=== PATIENT | female | born 1935 | race Caucasian/White ===

== ENCOUNTER 2018-03-02 02:24 | Emergency (ER) | payer MEDICARE, SELFPAY ==
[2018-03-02 02:25] VITALS: BP 205/84; PULSE 85; RESP 18; TEMP 37.1; O2SAT 97; BMI 20.8
--- NOTE | 2018-03-02 02:44 | CT_ITS ---
STUDY: CT ABDOMEN AND PELVIS WITH CONTRAST REASON FOR EXAM: Female, 82 years old. Abdominal pain x1 week RADIATION DOSAGE (If Supplied By Facility): CTDIvol = ( 9.30 ) mGy, DLP = ( 692.77 ) mGycm TECHNIQUE: Transaxial images were obtained from the dome of the diaphragm to the symphysis pubis with oral contrast. 100ML ml of Isovue 300 contrast was administered. Sagittal and coronal images were reconstructed. Individualized dose optimization techniques were used for this CT. COMPARISON: None. FINDINGS: The visualized lung bases are unremarkable. The visualized portions of the heart are within normal limits. Normal liver. The gallbladder is contracted. Normal spleen. Normal pancreas. Normal bilateral adrenal glands. Normal right kidney. Normal left kidney. Normal visualized stomach. Normal small intestine. There are multiple colonic diverticula consistent with diverticulosis. There is non-visualization of the appendix. Postsurgical changes of the rectum which chains sutures. There is diffuse atherosclerotic calcification of the abdominal aorta, without a demonstrated aneurysm. Normal inferior vena cava. Normal retroperitoneum. Normal urinary bladder. There is absence of the uterus consistent with a prior hysterectomy. Normal abdominal wall. There are diffuse degenerative changes of the visualized lumbar spine. CT/Abdomen/Pelvis WITH Contrast IMPRESSION: No acute findings. Postsurgical changes of the rectum. No evidence of diverticulitis. Electronically Signed: Robert Painter DO at 5:18 EDT Tel , Service support ,
[2018-03-02] MEDS: Ondansetron 4 MG/2 ML Vial IV (02:59)
[2018-03-02 03:09] LABS: Absolute Lymphocyte Count 0.84 X10^3/ul (0.83-4.51); Absolute Neutrophil Count 5.4 X10^3/uL (2.0-7.7); Basophil# 0.01 X10^3/uL; Basophil% 0.1 % (0-1); Eosinophil# 0.07 X10^3/uL; Hematocrit 43.8 % (37-47); Lymphocyte # 0.84 X10^3/ul (4.0); Lymphocyte % 12.1 % (19-41); Mean Corp Hgb Conc 34.2 g/gl (32-36); Mean Corpuscular Hgb 32.7 pg (27.0-32.0); Mean Corpuscular Volume 95.4 fL (81-99); Monocyte# 0.65 X10^3/uL; Monocyte% 9.4 % (0-10); Neutrophil # 5.35 X10^3/uL (2.7-7.7); Neutrophil % 77.3 % (47-70); Platelet Count 197 K/mm3 (150-450); RBC Distribution Width CV 12.9 % (11.6-14.6); Red Blood Count 4.59 M/mm3 (4.2-5.4); White Blood Count 6.9 K/mm3 (4.4-11.0)
[2018-03-02 03:11] LABS: POSITIVE COUNT NO; POSITIVE DIFFERENTIAL NO; POSITIVE MORPHOLOGY NO
[2018-03-02 03:22] LABS: ALB/GLOB Ratio 0.9 RATIO (0.9-2.4); AST(SGOT) 30 U/L (15-37); Alanine Aminotransfer ALT/SGPT 24 U/L (13-56); Albumin, Serum 3.6 g/dL (3.2-5.0); Alkaline Phosphatase 78 U/L (45-117); Anion Gap 13 (5-15); BUN 15 mg/dL (7-18); BUN/Creat Ratio 12.4 RATIO (10-20); Chloride 102 mmol/L (98-107); Creatinine, Serum 1.21 mg/dL (0.55-1.02); EST Glomerular Filtration Rate 45 mL/min (>60); Est Glom Filt Rate - Afr Amer 55 mL/min (>60); Estimated Creatinine Clearance 26.58 ml/min; Globulin 4.2 g/dL (2.2-4.2); Glucose 173 mg/dL (74-106); Lipase 183 U/L (73-393); Potassium 3.5 mmol/L (3.5-5.1); Protein, Total 7.8 g/dL (6.4-8.2); Sodium Level 140 mmol/L (136-145)
[2018-03-02 04:56] VITALS: BP 192/76; PULSE 59; RESP 18; O2SAT 97
--- NOTE | 2018-03-02 05:35 | ED.VISSUMM ---
- ER Visit Summary Date of Service: 03/02/18 Chief Complaint: Abdominal pain History of Present Illness: The patient is a 82 F who presents with abdominal pain. She complains of 3 days of burning mid abdominal pain which she currently rates as 5 out of 10. She reports nausea but no vomiting. She has had some loose stools. She has been taking Pepto-Bismol. She has had black stools but knows this may be from the Pepto-Bismol. No bright red blood per rectum. No fevers no chills. She is concerned that this may be related to valsartan. She states that her valsartan dose was increased however this was actually all the way back in December. Physical Examination: Afebrile vitals are notable for hypertension Moist mucous membranes Heart regular rate and rhythm Lungs clear Abdomen soft nondistended she does have some midabdominal tenderness without guarding without rebound Alert Test Results: CBC BMP notable for glucose 173 and creatinine of 1.2. Total bilirubin 1.2. Lipase normal. Hemoccult negative. CT of the abdomen and pelvis with oral and IV contrast shows no acute findings. Emergency Department Course and Treatment: Patient was treated with Zofran. She is resting comfortably on reevaluation. Her repeat abdominal exam is benign. Her laboratory studies are unremarkable with negative imaging. I do not believe this is due to any acute surgical process. I do suspect given her description of burning pain with a history of reflux that this may be related to gastritis. We will add on Carafate. She was advised to call her doctor today to schedule for outpatient follow-up. She was instructed on specific signs and symptoms to monitor for and conditions under which to return to the emergency department including but not limited to fevers or vomiting or worsening pain. She is comfortable with this plan. All questions were answered at bedside and the patient was discharged home. Treatment Plan: [] Disposition: Discharge Impression: Abdominal pain This note was generated with [employer] dictation software. It may contain incorrect words, spelling, and punctuation that were not noted in review of the chart prior to signing ED Disposition - Plan for ED Patient: Chief Complaint: Abd Pain Referrals: Henrique Fernandez MD [Primary Care Provider] -
--- NOTE | 2018-03-02 05:38 | ED.DEP ---
ED Disposition - Plan for ED Patient: Chief Complaint: Abd Pain Instructions: ED Abdominal Pain Unkn Cause Prescriptions: Sucralfate [Carafate] 1 gm PO 4X/DAY #40 tab Referrals: Henrique Fernandez MD [Primary Care Provider] -
[2018-03-02 05:46] VITALS: BP 178/63; RESP 18; O2SAT 96
== END 2018-03-02 05:51 | disposition home or self-care (01) ==
PROVIDERS: Emergency Provider Emergency Medicine; Family Provider Internal Medicine; PCP Internal Medicine
DX: R10.9 Unspecified abdominal pain (principal); R11.0 Nausea; R19.7 Diarrhea, unspecified; K21.9 Gastro-esophageal reflux disease without esophagitis; E11.9 Type 2 diabetes mellitus without complications; I10 Essential (primary) hypertension
CPT/HCPCS: 74177; 80053; 82274; 83690; 85025; 99285; Q9967; A4216; J2405

== ENCOUNTER 2018-03-04 15:10 | Emergency (ER) | payer MEDICARE, SELFPAY ==
[2018-03-04 15:12] VITALS: BP 144/90; PULSE 119; RESP 18; TEMP 36.1; O2SAT 98; BMI 24.2
--- NOTE | 2018-03-04 16:25 | EKG12_ITS ---
Test Reason : FATIGUE Blood Pressure : / mmHG Vent. Rate : 098 BPM Atrial Rate : 098 BPM P-R Int : 118 ms QRS Dur : 078 ms QT Int : 360 ms P-R-T Axes : 003 -39 069 degrees QTc Int : 459 ms Normal sinus rhythm Left axis deviation Pulmonary disease pattern Abnormal ECG Confirmed by ALINA DUMONT, NAY ([id number]), photo editor NESHA MILTON ([id number]) on 03/08/2018 8:56:26 AM Referred By: Confirmed By:NAY FLULER MD
[2018-03-04 16:27] VITALS: BP 185/90; PULSE 99; RESP 14; O2SAT 96
--- NOTE | 2018-03-04 16:29 | ED.VISSUMM ---
- ER Visit Summary Date of Service: 03/04/18 Chief Complaint: Fatigue History of Present Illness: The patient is a 82 F who states that she feels poorly. She states that she is constipated and her last bowel movement was at the beginning of the week. She states that she was in the emergency room earlier this week (per the chart she was seen 0 02/12 0). She states that time she felt weak. Per the ER documentation she was having some epigastric pain had negative Hemoccult negative labs. She states that she had a scan done. She went to her doctor's office yesterday and tells me they wanted to give her an IV but they were out of something. She tells me they advised her to come to the emergency room the next day. When asked why they would advised her to come to the emergency room the next day she states I cannot tell you what is going on because I do not want to and I live alone and now my chest hurts. Upon further questioning she tells me that they told her to drink plenty of fluids last night and that she still felt weak to come to the emergency room today. The patient gets emotionally upset with direct questions for her to explain vague statements. Physical Examination: Afebrile vital signs are stable Gen: Well-nourished well-developed Head: Normocephalic atraumatic Eyes: Perrl EOMI ENT: TMs clear no rhinorrhea moist mucous membranes Neck: Supple no lymphadenopathy no JVD nontender CVS: Regular rate rhythm no murmurs normal S1-S2 Respiratory: No distress clear to auscultation bilaterally chest nontender Abdomen: Soft nontender nondistended normal bowel sounds no masses Back: Nontender Extremity: Nontender no edema Skin: Normal color no rash Neuro: alert orientated ?3 CN II-XII intact normal strength sensation reflexes gait cerebellar Psych: Anxious Test Results: White blood cell count 14.9. BUN 28 with creatinine 1.1. Urinalysis 5000 white cells positive nitrates positive leukocyte esterase 4+ bacteria. This was sent for culture. EKG shows a sinus rhythm at a rate of 98 Emergency Department Course and Treatment: Patient received a liter of IV fluids. Spoke with the patient informed her that she had a urinary tract infection. Informed her we would be starting her on antibiotics. I asked her if she felt like she would need to be admitted and she declined. She stated that she could take care of herself at home. I asked if she was going to be able to eat and drink she said she would. I will write for some Zofran. I am also going to place her on Keflex. Patient was advised to return instructions. I think it is reasonable to do a trial of outpatient antibiotics before admission and she is not febrile or vomiting and she is hemodynamically stable Impression: 1. UTI This note was generated with [employer] dictation software. It may contain incorrect words, spelling, and punctuation that were not noted in review of the chart prior to signing ED Disposition - Plan for ED Patient: Disposition: Home or Assisted Living Chief Complaint: Fatigue Instructions: ED UTI Cystitis Female Prescriptions: Ondansetron [Zofran Odt] 4 mg PO Q8H PRN PRN #10 tab PRN Reason: Nausea Cephalexin [Keflex] 500 mg PO Q6 #28 cap Referrals: Henrique Fernandez MD [Primary Care Provider] - 3-5 Days if not improving
--- NOTE | 2018-03-04 16:34 | RAD_ITS ---
STUDY: X-RAY CHEST REASON FOR EXAM: Female, 82 years old. Weakness. Poor appetite. TECHNIQUE: Single frontal view of the chest. COMPARISON: January 31, 2016 FINDINGS: The lungs are mildly hyperexpanded and unchanged. There is no demonstrated pleural abnormality. There is mild cardiomegaly. Normal mediastinum and esvin. Normal visualized pulmonary arteries. There is atherosclerotic calcification of the aortic arch with tortuosity. Normal visualized thoracic spine. Normal visualized ribs, clavicles, and shoulders. There is no demonstrated abnormality of the visualized soft tissue structures of the upper abdomen. RAD/Chest 1 View (Portable) IMPRESSION: Stable appearance of the chest with no new or acute pathology. Electronically Signed: Eliazar Vee MD at 17:03 EDT , Service support ,
[2018-03-04] MEDS: 0.9% Normal Saline 1,000 ML 1000 ML IV (16:45)
[2018-03-04 17:03] LABS: Absolute Lymphocyte Count 0.86 X10^3/ul (0.83-4.51); Absolute Neutrophil Count 12.5 X10^3/uL (2.0-7.7); Basophil# 0.01 X10^3/uL; Basophil% 0.1 % (0-1); Eosinophil# 0.01 X10^3/uL; Eosinophils% 0.1 % (0-5); Hematocrit 47.7 % (37-47); Hemoglobin 16.7 g/dl (12.0-15.0); Lymphocyte # 0.86 X10^3/ul (4.0); Lymphocyte % 5.8 % (19-41); Mean Corpuscular Hgb 32.9 pg (27.0-32.0); Mean Corpuscular Volume 94.1 fL (81-99); Mean Platelet Vol. 9.4 fl (6.2-12.0); Monocyte# 1.48 X10^3/uL; Monocyte% 9.9 % (0-10); Neutrophil # 12.47 X10^3/uL (2.7-7.7); Neutrophil % 83.8 % (47-70); POSITIVE COUNT NO; POSITIVE DIFFERENTIAL NO; POSITIVE MORPHOLOGY NO; Platelet Count 294 K/mm3 (150-450); RBC Distribution Width CV 13.1 % (11.6-14.6); RBC Distribution Width SD 44.4 fl (35.1-43.9); Red Blood Count 5.07 M/mm3 (4.2-5.4); White Blood Count 14.9 K/mm3 (4.4-11.0)
[2018-03-04 17:05] LABS: Partial Thromboplast Time 27.5 Seconds (24.1-36.2); Prothrombin Time (Protime)PT. 13.1 SECONDS (11.7-14.9)
[2018-03-04 17:21] LABS: ALB/GLOB Ratio 0.8 RATIO (0.9-2.4); AST(SGOT) 23 U/L (15-37); Alanine Aminotransfer ALT/SGPT 22 U/L (13-56); Albumin, Serum 3.8 g/dL (3.2-5.0); Alkaline Phosphatase 77 U/L (45-117); Anion Gap 13 (5-15); BUN 28 mg/dL (7-18); BUN/Creat Ratio 25.2 RATIO (10-20); Calcium,Total 9.4 mg/dL (8.5-10.1); Chloride 96 mmol/L (98-107); Creatinine, Serum 1.11 mg/dL (0.55-1.02); EST Glomerular Filtration Rate 50 mL/min (>60); Est Glom Filt Rate - Afr Amer 60 mL/min (>60); Estimated Creatinine Clearance 27.58 ml/min; Globulin 4.7 g/dL (2.2-4.2); Glucose 139 mg/dL (74-106); Lipase 239 U/L (73-393); Potassium 3.8 mmol/L (3.5-5.1); Protein, Total 8.5 g/dL (6.4-8.2); Sodium Level 132 mmol/L (136-145)
[2018-03-04 18:01] LABS: Red Blood Cells-Urine 0 SEEN /hpf (0-5)
[2018-03-04 18:04] LABS: Color, Urine Yellow (Yellow); Glucose, Dipstick Normal (Normal); Ketone-Dipstick 50 mg/dl (Negative); Leukocyte Esterase-Dipstick 500 /ul (Negative); Nitrite-Dipstick Positive (Negative); Occult Blood-Urine 50 /ul (Negative); Protein-Dipstick 100 mg/dl (Negative); Urine Bilirubin Dipstick Negative (Negative); Urine Clarity Cloudy (Clear); Urine Urobilinogen Normal (Normal)
[2018-03-04 18:16] LABS: Hyaline Cast 0-5 SEEN /lpf (0-5)
[2018-03-04 18:17] LABS: Mucous, Urine 1+ /hpf (<or=2+)
[2018-03-04 18:18] LABS: Bacteria 4+ /hpf (None Seen)
[2018-03-04 18:19] VITALS: BP 168/90; PULSE 90; RESP 14; O2SAT 98
[2018-03-04 18:19] LABS: Squamous Epithelial Cells - UA 0-5 SEEN /hpf (5-10); Transitional Epithelial - Ur 0-5 SEEN /hpf (0-5); White Blood Cells 50-100 SEEN /hpf (0-5)
[2018-03-04] MEDS: Ondansetron ODT 4 MG Tablet PO (19:43)
[2018-03-04] MEDS: Cephalexin 250 MG Capsule 500 MG PO (19:44)
[2018-03-04 19:45] VITALS: BP 154/89; PULSE 94; RESP 16; O2SAT 97
--- NOTE | 2018-03-08 11:14 | ED.RN ---
Called pt to notify her of urine culture results. She was encouraged to return to ED for IV antibiotics. The pt verbalized understanding and stated she would come in tomorrow after she wakes up.
== END 2018-03-04 19:49 | disposition home or self-care (01) ==
PROVIDERS: Emergency Provider Emergency Medicine; Family Provider Internal Medicine; PCP Internal Medicine
DX: N39.0 Urinary tract infection, site not specified (principal); K21.9 Gastro-esophageal reflux disease without esophagitis; E11.9 Type 2 diabetes mellitus without complications; I10 Essential (primary) hypertension; K59.00 Constipation, unspecified; R07.9 Chest pain, unspecified
CPT/HCPCS: 71045; 80053; 81001; 83690; 84484; 85025; 85610; 85730; 87077; 87086; 87088; 87186; 93005; 96360; 99285; J7030; A4216

== ENCOUNTER 2018-03-09 09:30 | Emergency (ER) | payer MEDICARE, SELFPAY ==
[2018-03-09 09:31] VITALS: BP 165/86; PULSE 80; RESP 18; TEMP 36.6; O2SAT 98; BMI 23.4
[2018-03-09 10:06] LABS: Absolute Lymphocyte Count 1.32 X10^3/ul (0.83-4.51); Absolute Neutrophil Count 8.4 X10^3/uL (2.0-7.7); Basophil# 0.04 X10^3/uL; Basophil% 0.4 % (0-1); Eosinophil# 0.36 X10^3/uL; Eosinophils% 3.2 % (0-5); Hematocrit 45.2 % (37-47); Hemoglobin 15.3 g/dl (12.0-15.0); Lymphocyte # 1.32 X10^3/ul (4.0); Lymphocyte % 11.7 % (19-41); Mean Corp Hgb Conc 33.8 g/gl (32-36); Mean Corpuscular Hgb 32.2 pg (27.0-32.0); Mean Corpuscular Volume 95.2 fL (81-99); Monocyte# 1.12 X10^3/uL; Monocyte% 9.9 % (0-10); Neutrophil # 8.36 X10^3/uL (2.7-7.7); Neutrophil % 73.8 % (47-70); POSITIVE COUNT NO; POSITIVE DIFFERENTIAL NO; POSITIVE MORPHOLOGY NO; Platelet Count 330 K/mm3 (150-450); RBC Distribution Width CV 13.3 % (11.6-14.6); RBC Distribution Width SD 45.9 fl (35.1-43.9); Red Blood Count 4.75 M/mm3 (4.2-5.4); White Blood Count 11.3 K/mm3 (4.4-11.0)
[2018-03-09 10:21] LABS: Anion Gap 8 (5-15); BUN 16 mg/dL (7-18); BUN/Creat Ratio 12.6 RATIO (10-20); Chloride 100 mmol/L (98-107); Creatinine, Serum 1.27 mg/dL (0.55-1.02); EST Glomerular Filtration Rate 43 mL/min (>60); Est Glom Filt Rate - Afr Amer 52 mL/min (>60); Estimated Creatinine Clearance 25.33 ml/min; Glucose 136 mg/dL (74-106); Sodium Level 136 mmol/L (136-145)
--- NOTE | 2018-03-09 11:07 | ED.VISSUMM ---
- ER Visit Summary Date of Service: 03/09/18 Chief Complaint: Return visit for recently diagnosed UTI. History of Present Illness: The patient is a 82 F diagnosed with a urinary tract infection. Placed on the oral antibiotic Keflex. Urine culture returned showed 2 different E. coli. One was sensitive to any otherwise resistance to Keflex. Otherwise patient does not have complaints. No fever. Mild nausea and frequency. No vomiting. Physical Examination: Well-appearing older female. Vital signs are stable and afebrile. H EENT exam mildly dry mucous membranes. Neck nontender. Lungs clear to auscultation. Heart regular rhythm no murmur. Abdomen is soft and nontender. Normal bowel sounds. No peritoneal signs. Moving all 4 extremities. Neurovascularly intact. Calves nontender without edema. Neurologically awake and alert. Answering questions and following commands. No motor deficits. Test Results: CBC shows a white count of 11.3. H&H of 15 and 45. No bands. Electrolytes show potassium of 3.0. Gap of 8. Creatinine 1.27. Emergency Department Course and Treatment: Slightly patient looks well on repeat exam. She was treated with a liter of normal saline. I spoke to the infectious disease physician data management consultant. Patient will continue on her Keflex. I will add Macrobid twice daily. And she will be discharged home. Treatment Plan: I spoke both with infectious disease and also her primary care physician Dr. Fernandez. He will ensure follow-up with the patient. She will continue on Keflex and now Macrobid for 10 days. And follow-up as an outpatient. Disposition: Discharge Impression: Acute urinary tract infection with antibiotic resistant E. coli This note was generated with [employer] dictation software. It may contain incorrect words, spelling, and punctuation that were not noted in review of the chart prior to signing ED Disposition - Plan for ED Patient: Chief Complaint: Complaint Referrals: Henrique Fernandez MD [Primary Care Provider] -
--- NOTE | 2018-03-09 11:12 | ED.DCSUM_ITS ---
- ER Visit Summary Date of Service: 03/09/18 Chief Complaint: Return visit for recently diagnosed UTI. History of Present Illness: The patient is a 82 F diagnosed with a urinary tract infection. Placed on the oral antibiotic Keflex. Urine culture returned showed 2 different E. coli. One was sensitive to any otherwise resistance to Keflex. Otherwise patient does not have complaints. No fever. Mild nausea and frequency. No vomiting. Physical Examination: Well-appearing older female. Vital signs are stable and afebrile. H EENT exam mildly dry mucous membranes. Neck nontender. Lungs clear to auscultation. Heart regular rhythm no murmur. Abdomen is soft and nontender. Normal bowel sounds. No peritoneal signs. Moving all 4 extremities. Neurovascularly intact. Calves nontender without edema. Neurologically awake and alert. Answering questions and following commands. No motor deficits. Test Results: CBC shows a white count of 11.3. H&H of 15 and 45. No bands. Electrolytes show potassium of 3.0. Gap of 8. Creatinine 1.27. Emergency Department Course and Treatment: Slightly patient looks well on repeat exam. She was treated with a liter of normal saline. I spoke to the infectious disease physician adult probation officer. Patient will continue on her Keflex. I will add Macrobid twice daily. And she will be discharged home. Treatment Plan: I spoke both with infectious disease and also her primary care physician Dr. Fernandez. He will ensure follow-up with the patient. She will continue on Keflex and now Macrobid for 10 days. And follow-up as an outpatient. Disposition: Discharge Impression: Acute urinary tract infection with antibiotic resistant E. coli This note was generated with [employer] dictation software. It may contain incorrect words, spelling, and punctuation that were not noted in review of the chart prior to signing ED Disposition - Plan for ED Patient: Chief Complaint: Complaint Referrals: Henrique Fernandez MD [Primary Care Provider] -
--- NOTE | 2018-03-09 11:12 | ED.DEP ---
ED Disposition - Plan for ED Patient: Disposition: Home or Assisted Living Chief Complaint: Complaint Instructions: ED UTI Cystitis Female Prescriptions: Nitrofurantoin Macrocrystals [Macrobid] 100 mg PO Q12 #20 cap Referrals: Henrique Fernandez MD [Primary Care Provider] - 3-5 Days Additional Instructions: Plenty of fluids and rest. Continue and finish her Keflex. He will also be started on a second antibiotic called Macrobid that you will take 1 pill twice a day for 10 days. I spoke with Dr. Fernandez your primary care physician call his office and follow-up with him next week to be rechecked.
[2018-03-09] MEDS: Nitrofurantoin Macrocrystals 100 MG Capsule PO (11:18)
--- NOTE | 2018-03-10 11:03 | ED.RN ---
called rx for macrobid into [facility] for dr koroma. pt called and did not have the rx
== END 2018-03-09 11:15 | disposition home or self-care (01) ==
PROVIDERS: Emergency Provider Emergency Medicine; Family Provider Internal Medicine; PCP Internal Medicine
DX: N39.0 Urinary tract infection, site not specified (principal); A49.8 Other bacterial infections of unspecified site; Z16.29 Resistance to other single specified antibiotic; E11.9 Type 2 diabetes mellitus without complications; I10 Essential (primary) hypertension; Z85.828 Personal history of other malignant neoplasm of skin
CPT/HCPCS: 80048; 85025; 99282; A4216

== ENCOUNTER 2018-06-22 19:33 | Observation (INO) | payer MEDICARE, SELFPAY ==
[2018-06-22] VITALS (10 sets, daily range): BP systolic 138–165; BP diastolic 59–81; PULSE 56–70; RESP 13–18; TEMP 36.5–36.7; O2SAT 97–100; BMI 24.2; BMI 23.9
--- NOTE | 2018-06-22 19:57 | CT_ITS ---
STUDY: CT BRAIN WITHOUT CONTRAST REASON FOR EXAM: Female, 82 years old. Vertigo. RADIATION DOSAGE (If Supplied By Facility): CTDIvol = ( 44.99 ) mGy, DLP = ( 745.49 ) mGycm TECHNIQUE: Transaxial CT imaging of the brain was performed without administration of intravenous contrast material. Individualized dose optimization techniques were used for this CT. COMPARISON: January 31, 2016 FINDINGS: Normal soft tissue structures. Normal calvarium. There is mild cerebral atrophy with widening of the extra-axial spaces and ventricular dilatation. There are areas of decreased attenuation within the white matter tracts of the supratentorial brain, consistent with microvascular disease changes. Normal basal ganglia and thalami. Normal brainstem. Normal cerebellum. There is no intracranial hemorrhage. There are no findings of an acute ischemic infarction. Normal visualized paranasal sinuses. CT/Brain/Head without Contrast IMPRESSION: Chronic involutional changes of the brain. Small vessel ischemia. Electronically Signed: Danielle Elkins MD at 20:39 EST Tel , Service support ,
--- NOTE | 2018-06-22 19:57 | EKG12_ITS ---
Test Reason : DIZZY Blood Pressure : / mmHG Vent. Rate : 067 BPM Atrial Rate : 067 BPM P-R Int : 160 ms QRS Dur : 078 ms QT Int : 388 ms P-R-T Axes : 054 019 068 degrees QTc Int : 409 ms Normal sinus rhythm Normal ECG Confirmed by ALINA DUMONT, NAY ([id number]), editorial project manager NESHA MILTON ([id number]) on 06/27/2018 4:56:16 PM Referred By: SORAIDA Confirmed By:NAY FULLER MD
[2018-06-22 20:11] LABS: Absolute Lymphocyte Count 1.89 X10^3/ul (0.83-4.51); Basophil# 0.03 X10^3/uL; Basophil% 0.3 % (0-1); Eosinophil# 0.48 X10^3/uL; Eosinophils% 5.1 % (0-5); Hematocrit 44.8 % (37-47); Hemoglobin 14.8 g/dl (12.0-15.0); Lymphocyte # 1.89 X10^3/ul (4.0); Lymphocyte % 20.2 % (19-41); Mean Corpuscular Volume 96.8 fL (81-99); Mean Platelet Vol. 9.2 fl (6.2-12.0); Monocyte% 9.6 % (0-10); Neutrophil # 6.03 X10^3/uL (2.7-7.7); Neutrophil % 64.5 % (47-70); POSITIVE COUNT NO; POSITIVE DIFFERENTIAL NO; POSITIVE MORPHOLOGY NO; Platelet Count 249 K/mm3 (150-450); RBC Distribution Width CV 13.5 % (11.6-14.6); RBC Distribution Width SD 47.7 fl (35.1-43.9); Red Blood Count 4.63 M/mm3 (4.2-5.4); White Blood Count 9.4 K/mm3 (4.4-11.0)
[2018-06-22 20:11] LABS: Bedside Glucose 99 mg/dL (70-110)
[2018-06-22 20:13] LABS: Prothrombin Time (Protime)PT. 13.5 SECONDS (11.7-14.9)
[2018-06-22 20:14] LABS: Partial Thromboplast Time 29.7 Seconds (24.1-36.2)
[2018-06-22 20:21] LABS: Anion Gap 10 (5-15); BUN 23 mg/dL (7-18); BUN/Creat Ratio 17.4 RATIO (10-20); Calcium,Total 9.3 mg/dL (8.5-10.1); Chloride 104 mmol/L (98-107); Creatinine, Serum 1.32 mg/dL (0.55-1.02); EST Glomerular Filtration Rate 41 mL/min (>60); Est Glom Filt Rate - Afr Amer 49 mL/min (>60); Glucose 101 mg/dL (74-106); Potassium 4.2 mmol/L (3.5-5.1); Sodium Level 141 mmol/L (136-145)
--- NOTE | 2018-06-22 21:08 | ED.DCSUM_ITS ---
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 Onset 1345. She reports mild problems with speech presently. She denies headache. She denies double vision, blurred vision or loss of vision. She denies trouble swallowing. She denies cardiac respiratory symptoms. She denies nausea or vomiting. There is no history of trauma. She denies dysuria, frequency, urgency hematuria. Review of systems otherwise negative and please read written note Physical Examination: Vital signs noted and blood pressure is slightly elevated at 162/63. Head is atraumatic normocephalic. Pupils are equal round reactive. Extraocular muscles are intact. TMs are pearly white with landmarks noted. Nares patent with no drainage. Posterior pharynx without erythema or exudate. Uvula is midline. There is no dysphonia or dysphasia. Trachea is midline. There is no stridor with auscultation of the neck. Heart is regular without murmur, gallop or rub. S1 and S2 are normal. Lungs are clear to auscultation with good movement of air bilaterally. Abdomen is soft nontender. Patient is alert and oriented ?3. Motor is 5 over 5. Sensory is intact. DTRs are symmetric with no clonus or Babinski sign. Cranial 2 through 12 are intact. Cerebellar testing is normal. Speech is slightly slurred. NIH is 1. Test Results: CT of the head reveals chronic involutional changes. EKG sinus rhythm rate of 67 and normal. CBC unremarkable. Basic metabolic panels marked for creatinine 1.32. Coags normal. Troponin less than 0.015. Emergency Department Course and Treatment: Stroke order set was initiated. Family mother accompanied her said her speech was much worse earlier today and problem with speech and trouble with balance complaining of room spinning. 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 It may contain incorrect words, spelling, and punctuation that were not noted in review of the chart prior to signing ED Disposition - Plan for ED Patient: Chief Complaint: Neuro S/Sx Referrals: Henrique Fernandez MD [Primary Care Provider] -
--- NOTE | 2018-06-22 21:35 | HP.PCM_ITS ---
Problem List (1) Stroke-like symptoms Status: Acute History of Present Illness Date of Admission: 06/22/18 Chief Complaint: confusion The patient is a 82 year old F with a significant history of MRDD; hypothyroidism; tongue cancer and hypertension who presented with confusion that started 4 hours before presentation. Per patient's sister, patient did not know who his sister was and also she did not know who her emergency department director was. Associated with her symptoms is slurry speech, difficulty with ambulation; and a spinning sensation of her head. CT head at the emergency department was unremarkable. Patient's confusion had resolved at the emergency department and her slurry speech has improved. Patient reported that around March 13, 2018 she was treated with Macrobid for UTI.However she still has a burning sensation with urination. Past Medical History Medical History: Medical History (Last Updated 06/22/18 @ 21:46 by Lenin Wong MD) Hypothyroidism E03.9 Hypertension I10 Allergies amlodipine Allergy (Verified 06/22/18 19:34) Unknown amoxicillin [From Augmentin] Allergy (Verified 06/22/18 19:34) Unknown celecoxib [From Celebrex] Allergy (Verified 06/22/18 19:33) Unknown clavulanic acid [From Augmentin] Allergy (Verified 06/22/18 19:34) Unknown lisinopril Allergy (Verified 06/22/18 19:34) Unknown metformin Allergy (Verified 06/22/18 19:33) Unknown nitrofurantoin [From Macrodantin] Allergy (Verified 06/22/18 19:33) Unknown Home Medications: Ambulatory Orders Medication Instructions Recorded Atenolol 100 mg PO DAILY 01/31/16 Insulin Glargine [Lantus (BKC)] 26 units SC QHS 01/31/16 Levothyroxine [Synthroid] 88 mg PO DAILY 01/31/16 Lorazepam 0.5 mg PO DAILY PRN 01/31/16 Aspirin [Aspirin, Baby] 81 mg PO DAILY@0800 03/02/18 Losartan Potassium 100 mg PO DAILY 03/02/18 Sucralfate [Carafate] 1 gm PO 4X/DAY #40 tab 03/02/18 Esomeprazole Magnesium [Nexium 20 mg PO DAILY PRN PRN 06/22/18 24Hr] Loperamide [Imodium] 2 mg PO PRN PRN 06/22/18 Surgical History: - - Small bowel resection Psychiatric History: No pertinent psych hx Lives: Alone Smoking Status: Former smoker Tobacco Use: Cigarettes Alcohol: None - *Family History Paternal History Items: Dementia, - - Thyroid disease Maternal History Items: Diabetes, - - Kidney problems Review of Systems Constitutional: Denies: Chills, Fever, Weight Change HEENT: Denies: Head Aches, Sinus Congestion, Sinus Drainage Cardiovascular: Denies: Chest Pain, Palpitations Respiratory: Denies: Cough, Shortness of breath at rest, Sputum production Gastrointestinal: Denies: Abdominal Pain, Nausea, Vomiting Genitourinary: Denies: Dysuria Musculoskeletal: Denies: Joint Pain, Joint Tenderness Skin: Denies: Rash, Wounds Neurological: Reports: Slurred speech, Confusion. Denies: Focal weakness, Numbness, Tingling Psychiatric: Denies: Anxiety, Depression, Homicidal Ideations, Suicidal Ideations Hematologic/ Lymphatic: Denies: Easy Bruising, Easy Bleeding VTE Information - Inpt Only VTE Present on Admission: No VTE Mechan Device Prophylaxis: None VTE Pharm Prophylaxis ordered?: Yes Patient Problems: Active and Suspected Problems (Last Updated 06/22/18 @ 21:46 by Lenin Wong MD) Stroke-like symptoms (Acute) - Physical Exam General: Alert, Oriented x3, Cooperative HEENT: Atraumatic, PERRLA, EOMI, Normocephalic Oral: - - Erythema and swelling of the left side of tongue that she attributes to cancer Neck: Supple, No JVD, Negative Carotid Bruits Lungs: Clear to auscultation, Normal air movement Cardiovascular: Regular rate, No murmurs Abdomen: Bowel Sounds Present, Soft, Non Tender Extremities: No edema, Capillary Refill Less than 3 Seconds Skin: No rashes, No breakdown Musculoskeletal: No Tenderness to Palpation of Joints or Extremities Neurological: Slurred Speech, - Psych/Mental Status: Normal Affect, Appropriate Vital Signs Temp Pulse Resp BP Pulse Ox 97.7 F L 56 L 16 155/65 H 98 06/22/18 19:35 06/22/18 21:30 06/22/18 21:30 06/22/18 21:30 06/22/18 21:30 Oxygen Delivery Method Room Air Weight: 56.2 kg Body Mass Index (BMI) 24.2 Finger Stick Blood Glucose 99 Laboratory Tests Past 24 Hrs 06/22/18 06/22/18 06/22/18 19:45 19:45 19:45 WBC 9.4 RBC 4.63 Hgb 14.8 Hct 44.8 MCV 96.8 MCH 32.0 MCHC 33.0 RDW 13.5 RDW Differential 47.7 H Plt Count 249 MPV 9.2 Immature Gran % (Auto) 0.300 Neut % (Auto) 64.5 Lymph % (Auto) 20.2 [place] % (Auto) 9.6 Eos % (Auto) 5.1 H Baso % (Auto) 0.3 Absolute Neuts (auto) 6.0 Absolute Lymphs (auto) 1.89 Total Counted Not Reportable PT 13.5 INR 1.0 APTT 29.7 Sodium 141 Potassium 4.2 Chloride 104 Carbon Dioxide 27.0 Anion Gap 10 BUN 23 H Creatinine 1.32 H Estim Creat Clear Calc 23.20 Est GFR (MDRD) Af Amer 49 L Est GFR (MDRD) Non-Af 41 L BUN/Creatinine Ratio 17.4 Glucose 101 Calcium 9.3 Troponin I < 0.015 POC Glucose 06/22/18 19:43 POC Glucose 99 Assessment/Plan All Active Problems (Last Updated 06/22/18 @ 21:46 by Lenin Wong MD) Stroke-like symptoms (Acute) The patient is a 82 year old F with a significant history of MRDD; hypothyroidism; tongue cancer and hypertension who presented with confusion; difficulty with ambulation; Vertigo and slurry speech consistent with strokelike symptoms. Strokelike symptoms NINDS NIH Scale at emergency department was was 1 (slurry speech) CT of the head was showed chronic involutional changes of the brain; small vessel ischemia. Patient has a coils in her head (?cochlea implant) because of hearing problems. She is unable to get an MRI. Her creatinine on admission was 1.32. Her estimated creatinine clearance was 23.2. Her GFR was 49. We will hydrate patient with normal saline and get a CTA of the head and neck vessels. -Check Hba1c, Lipid level Physical therapy, occupational therapy and speech therapy to work with patient. N.p.o. until bedside swallow eval. Daily aspirin. High intensity statin Permissive hypertension. Control blood pressure with labetalol for systolic blood pressure of more than 220 or diastolic blood pressure of more than 120. -Permissive HTN for 24 hrs, intermediate frame tender goal BP < 120/80 mmHg and goal Hba1c < 7% Echocardiogram ordered. Probable UTI We will get urinalysis with blood culture. If Urinalysis is abnormal we will start patient on antibiotics. Hypertension On admission her blood pressure was not within goal. Hold home atenolol and losartan for permissive hypertension. Trend blood pressures. Hypothyroidism Synthroid continued. Diabetes mellitus type 2 On admission her blood glucose was within goal. Patient takes Lantus 26 units every night. Fingerstick blood glucose on admission was 99; and glucose on BMP was 101. We will will cutdown her Lantus to 20 units every night. Tongue cancer Patient follow up outpatient. Continue outpatient follow-up. DVT prophylaxis Subcutaneous heparin ordered. Code Visit OBSV E&M: 22180 Initial observation care L3
--- NOTE | 2018-06-22 21:53 | ECHOD_ITS ---
Reason For Study: CVA Procedure This was a 2D Doppler, Color Flow transthoracic echocardiogram. Exam performed portable in patient room. Left Ventricle Normal LV size. Left ventricular systolic function is normal. The estimated ejection fraction is 55 %. The global longitudinal strain = -19 % (normal). No evidence for diastolic dysfunction. No regional wall motion abnormalities noted. Right Ventricle Normal RV size. Normal systolic function. Atria Normal left atrium. Normal right atrium. Positive agitated saline contrast study for a right to left interatrial shunt c/w a small PFO vs. ASD. Mitral Valve There is no mitral annular calcification. Normal mitral valve. Trivial mitral valve insufficiency. Tricuspid Valve Normal tricuspid valve. Trivial tricuspid valve insufficiency. Right ventricular systolic pressure estimated to be 27 mmHg. Aortic Valve Trisinus/trileaflet aortic valve. Normal aortic valve. Pulmonic Valve The pulmonic valve is not well visualized. Trivial pulmonic valve insufficiency. Great Vessels Normal sized aortic root. Pericardium/Pleural No pericardial effusion. Medication Performed a rapid injection of agitated mix of 9 cc saline and 1cc air to assess for atrial septal defect. MMode/2D Measurements & Calculations LVIDd: 4.4 cm IVSd: 0.74 cm Ao root diam: 3.2 cm LVIDs: 3.1 cm LVPWd: 0.67 cm LA dimension: 3.8 cm RVDd: 2.8 cm FS: 29.9 % LAV(MOD-bp): 47.2 ml LVAd ap4: 26.2 cm2 SV(MOD-sp4): 47.0 ml LAV(MOD-bp) Indexed: 30.8 ml/m2 EDV(MOD-sp4): 79.8 ml LAV(MOD-sp2): 43.4 ml EDV(sp4-el): 84.6 ml LAV(MOD-sp4): 49.2 ml LVAs ap4: 14.6 cm2 ESV(MOD-sp4): 32.8 ml ESV(sp4-el): 32.3 ml EF(MOD-sp4): 58.9 % EF(sp4-el): 61.8 % SV(sp4-el): 52.3 ml LA A4 area: 18.4 cm2 RA A4 area: 13.2 cm2 Time Measurements MV dec time: 0.27 sec Doppler Measurements & Calculations MV E max manolo: 49.6 cm/sec Lat Peak E' Manolo: 7.4 cm/sec Med Peak E' Manolo: 4.5 cm/sec MV A max manolo: 99.2 cm/sec E/E' lat: 6.7 E/E' med: 11.1 MV E/A: 0.50 MV V2 max: 113.9 cm/sec MV P1/2t max manolo: 59.9 cm/sec Ao V2 max: 102.9 cm/sec MV max P.2 mmHg MV P1/2t: 109.5 msec Ao max P.2 mmHg MV V2 mean: 52.1 cm/sec Ao V2 mean: 67.6 cm/sec MV mean P.3 mmHg MV dec slope: 160.2 cm/sec2 Ao mean P.1 mmHg MV V2 VTI: 23.7 cm MVA(P1/2t): 2.0 cm2 Ao V2 VTI: 22.1 cm LV V1 max: 84.4 cm/sec PA V2 max: 64.9 cm/sec TR max manolo: 246.0 cm/sec LV V1 max P.9 mmHg TR max P.2 mmHg LV V1 mean P.5 mmHg LV V1 mean: 57.5 cm/sec LV V1 VTI: 20.4 cm Interpretation Summary Left ventricular systolic function is normal. The estimated ejection fraction is 55 %. The global longitudinal strain = -19 % (normal). Trivial mitral valve insufficiency. Trivial tricuspid valve insufficiency. Trivial pulmonic valve insufficiency. Right ventricular systolic pressure estimated to be 27 mmHg. No evidence for diastolic dysfunction. Positive agitated saline contrast study for a right to left interatrial shunt c/w a small PFO vs. ASD. Ordering Physician: Lenin Wong Referring Physician: Henrique Fernandez M.D. Performed By: Devin Coburn RCS
[2018-06-22 22:46] LABS: Mucous, Urine 0 SEEN /hpf (<or=2+); Red Blood Cells-Urine 0 SEEN /hpf (0-5)
[2018-06-22 22:49] LABS: Color, Urine Yellow (Yellow); Glucose, Dipstick Normal (Normal); Ketone-Dipstick 5 mg/dl (Negative); Leukocyte Esterase-Dipstick 500 /ul (Negative); Nitrite-Dipstick Positive (Negative); Occult Blood-Urine 10 /ul (Negative); Protein-Dipstick 15 mg/dl (Negative); Urine Bilirubin Dipstick Negative (Negative); Urine Clarity Cloudy (Clear); Urine Urobilinogen Normal (Normal)
[2018-06-22 22:56] LABS: Squamous Epithelial Cells - UA 0-5 SEEN /hpf (5-10)
[2018-06-22 22:59] LABS: White Blood Cells >100 SEEN /hpf (0-5)
[2018-06-22 23:00] LABS: Bacteria 3+ /hpf (None Seen)
[2018-06-22] MEDS: Heparin Injection (Vial) 5,000 UNIT/ML VIAL 5000 UNIT SC (23:00)
[2018-06-22] MEDS: 0.9% Normal Saline 1,000 ML 100 ML IV (23:01)
[2018-06-22] MEDS: Atorvastatin Calcium 80 MG Tablet PO (23:01)
[2018-06-22] MEDS: Sucralfate 1 GM Tablet PO (23:01)
[2018-06-22 23:13] LABS: Hemoglobin A1c 5.9 % (4.2-6.3)
[2018-06-22 23:21] LABS: Bedside Glucose 103 mg/dL (70-110)
[2018-06-22] MEDS: Ceftriaxone 1 GM/50 ML BAG IV (23:48)
[2018-06-23] VITALS (13 sets, daily range): BP systolic 131–165; BP diastolic 62–82; PULSE 65–78; RESP 12–18; TEMP 36.6–36.8; O2SAT 94–98
[2018-06-23] MEDS: Levothyroxine 88 MCG Tablet PO (06:12)
[2018-06-23] MEDS: Sucralfate 1 GM Tablet PO ×4 (06:12→22:19)
[2018-06-23 06:48] LABS: Anion Gap 7 (5-15); BUN 22 mg/dL (7-18); Calcium,Total 8.2 mg/dL (8.5-10.1); Chloride 108 mmol/L (98-107); Cholesterol 103 mg/dL (200); Creatinine, Serum 1.16 mg/dL (0.55-1.02); EST Glomerular Filtration Rate 47 mL/min (>60); Est Glom Filt Rate - Afr Amer 57 mL/min (>60); Estimated Creatinine Clearance 26.39 ml/min; Glucose 99 mg/dL (74-106); High Density Lipoprotein 36 mg/dL; Potassium 4.1 mmol/L (3.5-5.1); Sodium Level 139 mmol/L (136-145); Triglycerides 198 mg/dL; Very Low Density Lipoprotein 40 mg/dL (5-40)
[2018-06-23 07:10] LABS: Bedside Glucose 108 mg/dL (70-110)
[2018-06-23] MEDS: Aspirin 81 MG TAB.CHEW PO (09:38)
[2018-06-23] MEDS: Heparin Injection (Vial) 5,000 UNIT/ML VIAL 5000 UNIT SC ×2 (09:38→22:19)
[2018-06-23] MEDS: 0.9% Normal Saline 1,000 ML 100 ML IV (09:51)
--- NOTE | 2018-06-23 10:00 | CT_ITS ---
STUDY: CTA OF THE BRAIN REASON FOR EXAM: Female, 82 years old. Confusion, slurred speech and vertigo. RADIATION DOSAGE (If Supplied By Facility): CTDIvol = ( 25.87 ) mGy, DLP = ( 1294.73 ) mGycm TECHNIQUE: CT angiography was performed with a multi-detector CT scanner. Data acquisition was obtained from the skull base through the vertex following intravenous administration of 100 ml of Isovue-370. MIP images were reconstructed from the axial data set. Post-processing of the angiographic images was performed, with multiplanar reformation and 3D reconstruction. Individualized dose optimization techniques were used for this CT. COMPARISON: None. FINDINGS: Normal bilateral petrous carotid arteries. There is calcified plaque formation of the right cavernous carotid artery, without a cross-sectional luminal stenosis. There is calcified plaque formation of the left cavernous carotid artery, without a cross-sectional luminal stenosis. Normal right A1 segments of the anterior cerebral artery. Normal left A1 segments of the anterior cerebral artery. Normal intact anterior communicating artery (ACOM). Normal bilateral A2 segments of the anterior cerebral arteries. Normal right M1 and M2 segments of the middle cerebral arteries, with a normal M1 bifurcation. Normal left M1 and M2 segments of the middle cerebral arteries, with a normal M1 bifurcation. Normal right posterior communicating artery (PCOM). Normal left posterior communicating artery (PCOM). Normal bilateral vertebral arteries. Normal basilar artery with a normal basilar bifurcation. The visualized bilateral superior cerebellar (SCA) arteries are normal. Normal bilateral P1, P2 and visualized P3 segments of the posterior cerebral arteries. There is no demonstrated aneurysm of the tejon of [place]. Cerebral atrophy. CT/CTA Head W/WO Contrast IMPRESSION: Normal te[place] of [place] without a demonstrated aneurysm or hemodynamically significant stenosis. Electronically Signed: Issa Etienne MD at 13:02 EST Tel [phone], Service support ,
--- NOTE | 2018-06-23 10:00 | CT_ITS ---
STUDY: CTA NECK WITH AND WITHOUT CONTRAST REASON FOR EXAM: Female, 82 years old. Confusion, vertigo and slurred speech. RADIATION DOSAGE (If Supplied By Facility): CTDIvol = ( 19 ) mGy, DLP = ( 1294.73 ) mGycm TECHNIQUE: CT angiography with multi-detector data acquisition was performed from the aortic arch to the skull base prior to and after intravenous administration of 100 ml of Isovue 370 contrast. MIP images were reconstructed from the axial data set. Post-processing of the angiographic images was performed, with multiplanar reformation and 3D reconstruction. Individualized dose optimization techniques were used for this CT. COMPARISON: None. FINDINGS: AORTIC ARCH: There is atherosclerotic calcific plaque formation of the aortic arch and great vessels arising from the aortic arch, without a hemodynamically significant stenosis. There is a bovine origin of the great vessels with a common origin of the brachiocephalic and left common carotid artery. Normal origin of the left subclavian artery. RIGHT CAROTID ARTERIES: Normal right common carotid artery (CCA). Normal right common carotid bulb. Normal origin of the right internal carotid (ICA) artery without a hemodynamically significant stenosis. Normal visualized cervical portion of the right internal carotid artery. Normal origin of the right external carotid artery (ECA). LEFT CAROTID ARTERIES: Normal left common carotid artery (CCA). Normal left common carotid bulb. Normal origin of the left internal carotid (ICA) artery without a hemodynamically significant stenosis. Normal visualized cervical portion of the left internal carotid artery. Normal origin of the left external carotid artery (ECA). VERTEBRAL ARTERIES: Normal bilateral vertebral arteries. CT/CTA Neck W/WO Contrast IMPRESSION: Normal bilateral cervical carotid and vertebral arteries. Electronically Signed: Issa Etienne MD at 13:04 EST Tel [phone], Service support ,
--- NOTE | 2018-06-23 11:15 | PCM.PN.HOSP ---
Patient Problems: Active and Suspected Problems (Last Updated 06/22/18 @ 21:46 by Lenin Wong MD) Cystitis (Acute) Stroke-like symptoms (Acute) Subjective: Patient seen and examined. She was admitted with a complaint of altered mental status which started about 4 hours prior to presentation. She had assisted slurred speech and difficulty ambulation and a spinning sensation of the head. CT of the head done was negative and in the ED had confusion and slurred speech had resolved. She was admitted to a monitored bed and managed for acute metabolic encephalopathy due to UTI and to rule out a stroke. Patient seen and examined. Patient states that she took 1 pill of Ativan yesterday instead of her usual half pill because her half-sister had just come back into her life and she was having issues with her. She therefore took twice the dose of her usual Ativan to calm down and subsequently started feeling confused. She thinks that her confusion was due to the Ativan that she took. She also had burning with urination and states in March she was treated for UTI with Macrobid but still complained of burning sensation on admission. She denies any fever or chills, headache, blurred vision, slurred speech, abdominal pain, diarrhea vomiting. Review of systems otherwise negative. Labs and vitals reviewed. Vitals/I&O's: Vital Signs Temp Pulse Resp BP Pulse Ox 98.2 F 71 16 157/82 H 96 06/23/18 09:37 06/23/18 11:00 06/23/18 09:37 06/23/18 09:37 06/23/18 09:37 Oxygen Delivery Method Room Air Weight: 122 lb 9.232 oz Body Mass Index (BMI) 23.9 Finger Stick Blood Glucose 99 Intake and Output for Last 24 Hours 06/21/18 06/22/18 06/23/18 23:59 23:59 23:59 Intake Total 179 / 179 614 / 614 Output Total 525 / 525 Balance 179 / 179 / 89 General: Alert, Oriented x3, Cooperative, No apparent distress HEENT: Atraumatic, PERRLA, EOMI, Normocephalic Oral: Moist Mucosa Neck: Supple, No JVD, Negative Carotid Bruits Lungs: Clear to auscultation, Normal air movement, No rhonchi, No wheeze, No rales Cardiovascular: Regular rate, Regular Rhythm, Normal S1, Normal S2, No murmurs Abdomen: Bowel Sounds Present, Soft, Non Tender, Non-Distended, No Hepato-splenomegaly Extremities: No clubbing, No cyanosis, No edema, Capillary Refill Less than 3 Seconds Skin: No rashes, No breakdown Musculoskeletal: No Tenderness to Palpation of Joints or Extremities Lymphatic: No Cervical, Supraclavicular, or Inguinal Adenopathy Neurological: Cranial nerves II-XII grossly intact, Neuro grossly intact, Motor Exam 5/5 strength throughout Psych/Mental Status: Normal Affect, Appropriate, Alert and oriented to time, place, person, mood and affect Laboratory Results 06/22/18 19:43: POC Glucose 99 06/22/18 19:45: WBC 9.4, RBC 4.63, Hgb 14.8, Hct 44.8, MCV 96.8, MCH 32.0, MCHC 33.0, RDW 13.5, RDW Differential 47.7 H, Plt Count 249, MPV 9.2, Immature Gran % (Auto) 0.300, Neut % (Auto) 64.5, Lymph % (Auto) 20.2, [place] % (Auto) 9.6, Eos % (Auto) 5.1 H, Baso % (Auto) 0.3, Absolute Neuts (auto) 6.0, Absolute Lymphs (auto) 1.89, Total Counted Not Reportable 06/22/18 19:45: PT 13.5, INR 1.0, APTT 29.7 06/22/18 19:45: Sodium 141, Potassium 4.2, Chloride 104, Carbon Dioxide 27.0, Anion Gap 10, BUN 23 H, Creatinine 1.32 H, Estim Creat Clear Calc 23.20, Est GFR (MDRD) Af Amer 49 L, Est GFR (MDRD) Non-Af 41 L, BUN/Creatinine Ratio 17.4, Glucose 101, Calcium 9.3, Troponin I < 0.015 06/22/18 19:45: Hemoglobin A1c 5.9 06/22/18 22:37: Urine Color Yellow, Urine Clarity Cloudy, Urine pH 6.0, Ur Specific [place] 1.020, Urine Protein 15 H, Urine Glucose (UA) Normal, Urine Ketones 5 H, Urine Occult Blood 10 H, Urine Nitrite Positive H, Urine Bilirubin Negative, Urine Urobilinogen Normal, Ur Leukocyte Esterase 500 H, Urine RBC 0 SEEN, Urine WBC >100 SEEN, Ur Squamous Epith Cells 0-5 SEEN, Urine Bacteria 3+, Urine Mucus 0 SEEN 06/22/18 22:59: POC Glucose 103 06/23/18 05:45: Sodium 139, Potassium 4.1, Chloride 108 H, Carbon Dioxide 24.0, Anion Gap 7, BUN 22 H, Creatinine 1.16 H, Estim Creat Clear Calc 26.39, Est GFR (MDRD) Af Amer 57 L, Est GFR (MDRD) Non-Af 47 L, BUN/Creatinine Ratio 19.0, Glucose 99, Calcium 8.2 L, Triglycerides 198, Cholesterol 103, LDL Cholesterol 27, VLDL Cholesterol 40, HDL Cholesterol 36 L 06/23/18 06:42: POC Glucose [address] 06/22/18 19:57 IMPRESSION: Chronic involutional changes of the brain. Small vessel ischemia. Electronically Signed: Danielle Elkins MD at 20:39 EST Tel , Service support , Current Medications Acetaminophen (Tylenol) 650 mg PO Q4H PRN PRN PRN Reason: Headache/Temp>99F Acetaminophen (Tylenol) 650 mg RECTAL Q4H PRN PRN PRN Reason: Headache/Temp>99F Aspirin (Aspirin, Baby) 81 mg PO DAILY@0800 [facility] Last Admin: 06/23/18 09:38 Dose: 81 mg Atorvastatin Calcium (Lipitor) 80 mg PO QHS [facility] Last Admin: 06/22/18 23:01 Dose: 80 mg Dextrose (D50w Syringe) 0 gm IV X1 PRN; Protocol PRN Reason: Hypoglycemia Glucagon () 1 mg IM .X1 PRN PRN Reason: Hypoglycemia Heparin Sodium (Porcine) (Heparin Na) 5,000 unit SC Q12 [facility] Last Admin: 06/23/18 09:38 Dose: 5,000 unit Sodium Chloride () 1,000 mls @ 100 mls/hr IV .Q10H [facility] Stop: 06/23/18 18:59 Last Admin: 06/23/18 09:51 Dose: 100 mls/hr Ceftriaxone Sodium (Rocephin) 1 gm in 50 mls @ 100 mls/hr IV Q24@2200 [facility] Last Admin: 06/22/18 23:48 Dose: 100 mls/hr Insulin Glargine (Lantus (Bkc)) 20 units SC QHS [facility] Last Admin: 06/22/18 23:01 Dose: 20 units Labetalol HCl (Trandate) 10 mg IV Q10M PRN PRN Reason: MAINTAIN BP < 220/120 Stop: 06/23/18 21:54 Levothyroxine Sodium (Synthroid) 88 mcg PO DAILY@0600 [facility] Last Admin: 06/23/18 06:12 Dose: 88 mcg Loperamide HCl (Imodium) 2 mg PO PRN PRN PRN Reason: Diarrhea Lorazepam (Ativan) 0.5 mg PO DAILY PRN PRN PRN Reason: ANXIETY Magnesium Hydroxide (Milk Of Magnesia) 30 ml PO DAILY PRN PRN Reason: Constipation Ondansetron HCl (Zofran) 4 mg IV Q8H PRN PRN PRN Reason: NAUSEA Pantoprazole Sodium (Protonix) 20 mg PO DAILY PRN PRN PRN Reason: GERD Sodium Chloride () 5 - 15 ml IV UD PRN PRN Reason: SALINE FLUSH Sucralfate (Carafate) 1 gm PO 1HR_ACHS [facility] Last Admin: 06/23/18 09:38 Dose: 1 gm Zolpidem Tartrate (Ambien (Generic)) 5 mg PO QHS PRN PRN PRN Reason: INSOMNIA Medical Necessity - Tobacco Use Smoking Status: Former smoker Tobacco Use: Cigarettes Assessment/Plan All Active Problems (Last Updated 06/22/18 @ 21:46 by Lenin Wong MD) Cystitis (Acute) Stroke-like symptoms (Acute) 1. Acute metabolic encephalopathy likely medication induced took one pill of ativan instead of half a pill, and started having these symptoms. symptoms had resolved by the time she got to the ED CT brain was negative; unable to get MRI o/a of metallic cochlear implant 2D echo pending o/a of suspicion of stroke. CTA of head and neck pending I dont think her symptoms were due to stroke, and most likely due to medication hold ativan on aspirin and statin. 2. UTI UA showed 3+ bacteria Urine culture pending On IV ceftriaxone will monitor 3. Hyeprtension: atenolol and losartan were held for permissive hypertension due to suspicion for stroke. WIll resume BP meds 4. Hypothyroidism: on synthroid 5. Diabetes mellitus: on lantus 26IU qhs, reduced to 20IU on admission. ISS. Accuchecks ACHS 6. Tongue cancer: to continue following up with oncology on outpatient basis 7. CKD 3: Cr is 1.16, which is around her baseline. Samuel monitor DVT prophylaxis: heparin Code Visit OBSV E&M: 13773 Subsequent observation care L3
--- NOTE | 2018-06-23 11:27 | PN_ITS ---
Patient Problems: Active and Suspected Problems (Last Updated 06/22/18 @ 21:46 by Lenin Wong MD) Cystitis (Acute) Stroke-like symptoms (Acute) Subjective: Patient seen and examined. She was admitted with a complaint of altered mental status which started about 4 hours prior to presentation. She had assisted slurred speech and difficulty ambulation and a spinning sensation of the head. CT of the head done was negative and in the ED had confusion and slurred speech had resolved. She was admitted to a monitored bed and managed for acute metabolic encephalopathy due to UTI and to rule out a stroke. Patient seen and examined. Patient states that she took 1 pill of Ativan yesterday instead of her usual half pill because her half-sister had just come back into her life and she was having issues with her. She therefore took twice the dose of her usual Ativan to calm down and subsequently started feeling confused. She thinks that her confusion was due to the Ativan that she took. She also had burning with urination and states in March she was treated for UTI with Macrobid but still complained of burning sensation on admission. She denies any fever or chills, headache, blurred vision, slurred speech, abdominal pain, diarrhea vomiting. Review of systems otherwise negative. Labs and vitals reviewed. Vitals/I&O's: Vital Signs Temp Pulse Resp BP Pulse Ox 98.2 F 71 16 157/82 H 96 06/23/18 09:37 06/23/18 11:00 06/23/18 09:37 06/23/18 09:37 06/23/18 09:37 Oxygen Delivery Method Room Air Weight: 122 lb 9.232 oz Body Mass Index (BMI) 23.9 Finger Stick Blood Glucose 99 Intake and Output for Last 24 Hours 06/21/18 06/22/18 06/23/18 23:59 23:59 23:59 Intake Total 179 / 179 614 / 614 Output Total 525 / 525 Balance 179 / 179 / 89 General: Alert, Oriented x3, Cooperative, No apparent distress HEENT: Atraumatic, PERRLA, EOMI, Normocephalic Oral: Moist Mucosa Neck: Supple, No JVD, Negative Carotid Bruits Lungs: Clear to auscultation, Normal air movement, No rhonchi, No wheeze, No rales Cardiovascular: Regular rate, Regular Rhythm, Normal S1, Normal S2, No murmurs Abdomen: Bowel Sounds Present, Soft, Non Tender, Non-Distended, No Hepato- splenomegaly Extremities: No clubbing, No cyanosis, No edema, Capillary Refill Less than 3 Seconds Skin: No rashes, No breakdown Musculoskeletal: No Tenderness to Palpation of Joints or Extremities Lymphatic: No Cervical, Supraclavicular, or Inguinal Adenopathy Neurological: Cranial nerves II-XII grossly intact, Neuro grossly intact, Motor Exam 5/5 strength throughout Psych/Mental Status: Normal Affect, Appropriate, Alert and oriented to time, place, person, mood and affect Laboratory Results 06/22/18 19:43: POC Glucose 99 06/22/18 19:45: WBC 9.4, RBC 4.63, Hgb 14.8, Hct 44.8, MCV 96.8, MCH 32.0, MCHC 33.0, RDW 13.5, RDW Differential 47.7 H, Plt Count 249, MPV 9.2, Immature Gran % (Auto) 0.300, Neut % (Auto) 64.5, Lymph % (Auto) 20.2, [place] % (Auto) 9.6, Eos % (Auto) 5.1 H, Baso % (Auto) 0.3, Absolute Neuts (auto) 6.0, Absolute Lymphs (au to) 1.89, Total Counted Not Reportable 06/22/18 19:45: PT 13.5, INR 1.0, APTT 29.7 06/22/18 19:45: Sodium 141, Potassium 4.2, Chloride 104, Carbon Dioxide 27.0, Anion Gap 10, BUN 23 H, Creatinine 1.32 H, Estim Creat Clear Calc 23.20, Est GFR (MDRD) Af Amer 49 L, Est GFR (MDRD) Non-Af 41 L, BUN/Creatinine Ratio 17.4, Glucose 101, Calcium 9.3, Troponin I < 0.015 06/22/18 19:45: Hemoglobin A1c 5.9 06/22/18 22:37: Urine Color Yellow, Urine Clarity Cloudy, Urine pH 6.0, Ur Specific [place] 1.020, Urine Protein 15 H, Urine Glucose (UA) Normal, Urine Ketones 5 H, Urine Occult Blood 10 H, Urine Nitrite Positive H, Urine Bilirubin Negative, Urine Urobilinogen Normal, Ur Leukocyte Esterase 500 H, Urine RBC 0 SEEN, Urine WBC >100 SEEN, Ur Squamous Epith Cells 0-5 SEEN, Urine Bacteria 3+, Urine Mucus 0 SEEN 06/22/18 22:59: POC Glucose 103 06/23/18 05:45: Sodium 139, Potassium 4.1, Chloride 108 H, Carbon Dioxide 24.0, Anion Gap 7, BUN 22 H, Creatinine 1.16 H, Estim Creat Clear Calc 26.39, Est GFR (MDRD) Af Amer 57 L, Est GFR (MDRD) Non-Af 47 L, BUN/Creatinine Ratio 19.0, Glucose 99, Calcium 8.2 L, Triglycerides 198, Cholesterol 103, LDL Cholesterol 27, VLDL Cholesterol 40, HDL Cholesterol 36 L 06/23/18 06:42: POC Glucose [address] 06/22/18 19:57 IMPRESSION: Chronic involutional changes of the brain. Small vessel ischemia. Electronically Signed: Danielle Elkins MD at 20:39 EST Tel , Service support , Current Medications Acetaminophen (Tylenol) 650 mg PO Q4H PRN PRN PRN Reason: Headache/Temp>99F Acetaminophen (Tylenol) 650 mg RECTAL Q4H PRN PRN PRN Reason: Headache/Temp>99F Aspirin (Aspirin, Baby) 81 mg PO DAILY@0800 [facility] Last Admin: 06/23/18 09:38 Dose: 81 mg Atorvastatin Calcium (Lipitor) 80 mg PO QHS [facility] Last Admin: 06/22/18 23:01 Dose: 80 mg Dextrose (D50w Syringe) 0 gm IV X1 PRN; Protocol PRN Reason: Hypoglycemia Glucagon () 1 mg IM .X1 PRN PRN Reason: Hypoglycemia Heparin Sodium (Porcine) (Heparin Na) 5,000 unit SC Q12 [facility] Last Admin: 06/23/18 09:38 Dose: 5,000 unit Sodium Chloride () 1,000 mls @ 100 mls/hr IV .Q10H [facility] Stop: 06/23/18 18:59 Last Admin: 06/23/18 09:51 Dose: 100 mls/hr Ceftriaxone Sodium (Rocephin) 1 gm in 50 mls @ 100 mls/hr IV Q24@2200 [facility] Last Admin: 06/22/18 23:48 Dose: 100 mls/hr Insulin Glargine (Lantus (Bkc)) 20 units SC QHS [facility] Last Admin: 06/22/18 23:01 Dose: 20 units Labetalol HCl (Trandate) 10 mg IV Q10M PRN PRN Reason: MAINTAIN BP < 220/120 Stop: 06/23/18 21:54 Levothyroxine Sodium (Synthroid) 88 mcg PO DAILY@0600 [facility] Last Admin: 06/23/18 06:12 Dose: 88 mcg Loperamide HCl (Imodium) 2 mg PO PRN PRN PRN Reason: Diarrhea Lorazepam (Ativan) 0.5 mg PO DAILY PRN PRN PRN Reason: ANXIETY Magnesium Hydroxide (Milk Of Magnesia) 30 ml PO DAILY PRN PRN Reason: Constipation Ondansetron HCl (Zofran) 4 mg IV Q8H PRN PRN PRN Reason: NAUSEA Pantoprazole Sodium (Protonix) 20 mg PO DAILY PRN PRN PRN Reason: GERD Sodium Chloride () 5 - 15 ml IV UD PRN PRN Reason: SALINE FLUSH Sucralfate (Carafate) 1 gm PO 1HR_ACHS [facility] Last Admin: 06/23/18 09:38 Dose: 1 gm Zolpidem Tartrate (Ambien (Generic)) 5 mg PO QHS PRN PRN PRN Reason: INSOMNIA Medical Necessity - Tobacco Use Smoking Status: Former smoker Tobacco Use: Cigarettes Assessment/Plan All Active Problems (Last Updated 06/22/18 @ 21:46 by Lenin Wong MD) Cystitis (Acute) Stroke-like symptoms (Acute) 1. Acute metabolic encephalopathy likely medication induced * took one pill of ativan instead of half a pill, and started having these symptoms. 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 * CTA of head and neck pending * I dont think her symptoms were due to stroke, and most likely due to medication * hold ativan * on aspirin and statin. * 2. UTI * UA showed 3+ bacteria * Urine culture pending * On IV ceftriaxone * will monitor * 3. Hyeprtension: * atenolol and losartan were held for permissive hypertension due to suspicion for stroke. * WIll resume BP meds * 4. Hypothyroidism: on synthroid 5. Diabetes mellitus: on lantus 26IU qhs, reduced to 20IU on admission. ISS. Accuchecks ACHS 6. Tongue cancer: to continue following up with oncology on outpatient basis 7. CKD 3: Cr is 1.16, which is around her baseline. Samuel monitor DVT prophylaxis: heparin Code Visit OBSV E&M: 87770 Subsequent observation care L3
[2018-06-23 11:31] LABS: Bedside Glucose 103 mg/dL (70-110)
--- NOTE | 2018-06-23 14:13 | CASEMGMT ---
BENNY AVILA NOTE: LEIVA form reviewed with pt. Pt denies having any questions. Form signed by pt, copy made and placed on chart, and original given to pt. Pt also given MCR Are you a hospital inpatient or outpatient information packet. Jamal DALY RN CM
[2018-06-23 16:30] LABS: Bedside Glucose 87 mg/dL (70-110)
[2018-06-23] MEDS: Atorvastatin Calcium 80 MG Tablet PO (22:19)
[2018-06-23] MEDS: Ceftriaxone 1 GM/50 ML BAG IV (22:20)
[2018-06-23 22:31] LABS: Bedside Glucose 124 mg/dL (70-110)
--- NOTE | 2018-06-23 23:50 | NURSING ---
PT FOUND IN HALLWAY OUTSIDE HER ROOM. STATES SHE WOKE UP AFTER A DREAM AND WAS DISORIENTED. DID NOT KNOW WHERE SHE WAS FOR A BRIEF PERIOD OF TIME. WAS ABLE TO REORIENT HERSELF. IV WAS REMOVED FROM SITE. SITE INTACT. PT RETURNED TO HER ROOM. BATHED W/BATH PACK. GOWN CHANGED. DENIES FURTHER NEEDS. BED EXIT ON.
[2018-06-24 03:00] VITALS: BP 144/65; PULSE 75; PULSE 77; RESP 18; TEMP 36.6; O2SAT 95
[2018-06-24 06:48] LABS: Absolute Lymphocyte Count 1.47 X10^3/ul (0.83-4.51); Absolute Neutrophil Count 4.1 X10^3/uL (2.0-7.7); Basophil# 0.04 X10^3/uL; Basophil% 0.6 % (0-1); Eosinophil# 0.38 X10^3/uL; Eosinophils% 5.7 % (0-5); Hematocrit 38.6 % (37-47); Hemoglobin 12.6 g/dl (12.0-15.0); Lymphocyte # 1.47 X10^3/ul (4.0); Lymphocyte % 21.9 % (19-41); Mean Corp Hgb Conc 32.6 g/gl (32-36); Mean Corpuscular Hgb 31.7 pg (27.0-32.0); Mean Corpuscular Volume 97.2 fL (81-99); Mean Platelet Vol. 9.5 fl (6.2-12.0); Monocyte# 0.66 X10^3/uL; Monocyte% 9.9 % (0-10); Neutrophil # 4.14 X10^3/uL (2.7-7.7); Neutrophil % 61.8 % (47-70); Platelet Count 178 K/mm3 (150-450); RBC Distribution Width CV 13.5 % (11.6-14.6); RBC Distribution Width SD 47.7 fl (35.1-43.9); Red Blood Count 3.97 M/mm3 (4.2-5.4); White Blood Count 6.7 K/mm3 (4.4-11.0)
[2018-06-24] MEDS: Levothyroxine 88 MCG Tablet PO (06:50)
[2018-06-24] MEDS: Sucralfate 1 GM Tablet PO (06:51)
[2018-06-24 06:56] LABS: POSITIVE COUNT NO; POSITIVE DIFFERENTIAL NO; POSITIVE MORPHOLOGY NO
[2018-06-24 07:00] LABS: Bedside Glucose 70 mg/dL (70-110)
[2018-06-24 07:00] LABS: Anion Gap 9 (5-15); BUN 17 mg/dL (7-18); BUN/Creat Ratio 16.5 RATIO (10-20); Calcium,Total 8.4 mg/dL (8.5-10.1); Chloride 112 mmol/L (98-107); Creatinine, Serum 1.03 mg/dL (0.55-1.02); EST Glomerular Filtration Rate 54 mL/min (>60); Est Glom Filt Rate - Afr Amer 66 mL/min (>60); Estimated Creatinine Clearance 29.73 ml/min; Glucose 74 mg/dL (74-106); Potassium 4.1 mmol/L (3.5-5.1); Sodium Level 144 mmol/L (136-145)
[2018-06-24 07:31] VITALS: PULSE 70
[2018-06-24 08:52] VITALS: BP 129/68; PULSE 75; RESP 16; TEMP 36.9; O2SAT 96
[2018-06-24] MEDS: Losartan Potassium 100 MG Tablet PO (09:02)
[2018-06-24] MEDS: Heparin Injection (Vial) 5,000 UNIT/ML VIAL 5000 UNIT SC (09:02)
[2018-06-24] MEDS: Aspirin 81 MG TAB.CHEW PO (09:02)
[2018-06-24] MEDS: Atenolol 100 MG Tablet PO (09:02)
[2018-06-24 11:07] VITALS: PULSE 70
--- NOTE | 2018-06-24 11:22 | DCINST_ITS ---
- Discharge Diagnoses Current Active Problems: Current Active and Chronic Problems (Last Updated 06/22/18 @ 21:46 by Lenin Wong MD) Cystitis (Acute) Stroke-like symptoms (Acute) You will use the following diet at home:: Cardiac Your food should be the consistency of: Regular Your liquids should be the consistency of: Regular/Thin Discharge Activity: Return to Normal Activity Weight Bearing Status: Weight bearing as tolerated Call your doctor if you observe: Fever of 101 or Higher, Dizziness, Fainting spells Instructions: Understanding Urinary Tract Infections (UTIs) Allergies/Adverse Reactions: Allergies amlodipine Allergy (Verified 06/22/18 22:32) Unknown amoxicillin [From Augmentin] Allergy (Verified 06/22/18 22:32) Unknown celecoxib [From Celebrex] Allergy (Verified 06/22/18 22:32) Unknown clavulanic acid [From Augmentin] Allergy (Verified 06/22/18 22:32) Unknown lisinopril Allergy (Verified 06/22/18 22:32) Unknown metformin Allergy (Verified 06/22/18 22:32) Unknown nitrofurantoin [From Macrodantin] Allergy (Verified 06/22/18 22:32) Unknown Medications to take at Discharge Atenolol 100 mg PO DAILY 01/31/16 Insulin Glargine [Lantus SoloStar Pen] 26 units SC QHS 01/31/16 Levothyroxine [Synthroid] 88 mg PO DAILY 01/31/16 Lorazepam 1 mg PO DAILY PRN 01/31/16 Aspirin [Aspirin, Baby] 81 mg PO DAILY@0800 03/02/18 Losartan Potassium 100 mg PO DAILY 03/02/18 Sucralfate [Carafate] 1 gm PO 4X/DAY #40 tab 03/02/18 Esomeprazole Magnesium [Nexium 24Hr] 20 mg PO DAILY PRN PRN 06/22/18 Loperamide [Imodium] 2 mg PO PRN PRN 06/22/18 Primary Care Physician: Henrique Fernandez MD [Primary Care Provider] - Please follow up with your Primary Care Physician in: one week Test Results: Test results from this visit will be discussed in further detail at your follow- up appointment, if applicable. Proposed Discharge Date: 06/24/18
--- NOTE | 2018-06-24 11:22 | PCM.DC.SUM ---
Discharge Date and Diagnosis - Problem List Patient Problems: Active and Suspected Problems (Last Updated 06/22/18 @ 21:46 by Lenin Wong MD) Cystitis (Acute) Date of Admission: 06/22/18 Date of Discharge: 06/24/18 - Primary Discharge Diagnosis Active and Suspected Problems (Last Updated 06/22/18 @ 21:46 by Lenin Wong MD) Cystitis (Acute) Stroke-like symptoms (Acute) acute metabolic encephalopathy due to benzodiazepines Hospital Course and Treatment Imaging Results: Diagnostic Data Brain CT 06/22/18 19:57 IMPRESSION: Chronic involutional changes of the brain. Small vessel ischemia. Electronically Signed: Danielle Elkins MD at 20:39 EST Tel , Service support , Head CTA 06/23/18 10:00 IMPRESSION: Normal agdaagux of [place] without a demonstrated aneurysm or hemodynamically significant stenosis. Electronically Signed: Issa Etienne MD at 13:02 EST Tel [phone], Service support , Neck CTA 06/23/18 10:00 IMPRESSION: Normal bilateral cervical carotid and vertebral arteries. Electronically Signed: Issa Etienne MD at 13:04 EST Tel [phone], Service support , Left ventricular systolic function is normal. The estimated ejection fraction is 55 %. The global longitudinal strain = -19 % (normal). Trivial mitral valve insufficiency. Trivial tricuspid valve insufficiency. Trivial pulmonic valve insufficiency. Right ventricular systolic pressure estimated to be 27 mmHg. No evidence for diastolic dysfunction. Positive agitated saline contrast study for a right to left interatrial shunt c/w a small PFO vs. ASD. Operations: None Procedures: 2-D Echocardiogram Summary of Care Provided: The patient is a 82 year old F with past medical history significant for hypothyroidism, tongue cancer and hypertension as well as MRDD. She was admitted with a complaint of confusion which started about 4 hours prior to presentation. She had a still slurred speech and difficulty ambulation as well as spinning sensation of her head. She was initially admitted and managed for strokelike symptoms. CT done of her head was negative. By the time she arrived in the ED her symptoms had resolved. She also had burning with urination and a UA was positive for UTI. She was therefore started on IV ceftriaxone. Upon further questioning, patient admitted that she took twice a dose of benzodiazepine and the confusion started afterwards. Diagnosis was therefore advised to acute metabolic encephalopathy likely due to benzodiazepines. 2D echocardiogram ordered showed normal left ventricular systolic function with EF of 55% and RVSP of 27 mmHg. She had positive agitated saline contrast study for a small left to right intra-atrial shunt consistent with a small PFO versus ASD. Patient was unable to have MRI on account of her having a metallic cochlear implant. CT angiogram of head and neck were negative. Diagnosis of PFO versus ASD and risk of stroke was discussed with both cardiology (Dr Webb) and neurology (Dr Justin). Per neurology, since this was an incidental finding and patient symptoms had resolved spontaneously and was likely due to benzodiazepine, it was very unlikely that her symptoms were due to stroke. There was therefore no need for any further workup and patient could be discharged on p.o. aspirin 81 mg daily which she had been on. Patient's urine cultured ESBL E. coli. She was given 1 dose of 3 g of p.o. fosfomycin after discussion with infectious disease. She was discharged home on 06/24/2018. She is to follow-up with her PCP and cardiology. Seen and examined prior to discharge. She had no complaints and felt she denied any fever or chills, any dizziness or lightheadedness, any slurred speech, any weakness, any abdominal pain, any diarrhea vomiting. 12 point review of systems otherwise negative. Labs and vitals reviewed. Home medications reviewed and reconciled. o/e: Vital Signs Height 5 ft Weight: 122 lb 9.232 oz Weight in Pounds 122.6 lbs Pulse Ox 96 Temperature 98.5 F Pulse Rate 70 Respiratory Rate 16 Blood Pressure 129/68 Blood Pressure Position Semi-Fowlers []General: Alert, Oriented x3, Cooperative, No apparent distress HEENT: Atraumatic, PERRLA, EOMI, Normocephalic Oral: Moist Mucosa Neck: Supple, No JVD, Negative Carotid Bruits Lungs: Clear to auscultation, Normal air movement, No rhonchi, No wheeze, No rales Cardiovascular: Regular rate, Regular Rhythm, Normal S1, Normal S2, No murmurs Abdomen: Bowel Sounds Present, Soft, Non Tender, Non-Distended, No Hepato-splenomegaly Extremities: No clubbing, No cyanosis, No edema, Capillary Refill Less than 3 Seconds Skin: No rashes, No breakdown Musculoskeletal: No Tenderness to Palpation of Joints or Extremities Lymphatic: No Cervical, Supraclavicular, or Inguinal Adenopathy Neurological: Cranial nerves II-XII grossly intact, Neuro grossly intact, Motor Exam 5/5 strength throughout Psych/Mental Status: Normal Affect, Appropriate, Alert and oriented to time, place, person, mood and affect Plan as described above. Patient Problems: Active and Suspected Problems (Last Updated 06/22/18 @ 21:46 by Lenin Wong MD) Cystitis (Acute) - Physical Exam Vital Signs Temp Pulse Resp BP Pulse Ox 98.5 F 70 16 129/68 H 96 06/24/18 08:52 06/24/18 11:07 06/24/18 08:52 06/24/18 08:52 06/24/18 08:52 Oxygen Delivery Method Room Air Weight: 122 lb 9.232 oz Body Mass Index (BMI) 23.9 Finger Stick Blood Glucose 99 Intake and Output for Last 24 Hours 06/22/18 06/23/18 06/24/18 23:59 23:59 23:59 Intake Total 179 / 179 2403 / 2403 882 / 882 Output Total 1025 / 1025 300 / 300 Balance 179 / 179 1378 / 1378 582 / 582 Microbiology Past 72 Hours 06/22/18 22:37 Urine Culture - Preliminary Urine, Clean Catch Presumptive E. coli Laboratory Tests Past 24 Hrs 06/24/18 06/24/18 05:53 05:53 WBC 6.7 RBC 3.97 L Hgb 12.6 Hct 38.6 MCV 97.2 MCH 31.7 MCHC 32.6 RDW 13.5 RDW Differential 47.7 H Plt Count 178 MPV 9.5 Immature Gran % (Auto) 0.100 Neut % (Auto) 61.8 Lymph % (Auto) 21.9 [place] % (Auto) 9.9 Eos % (Auto) 5.7 H Baso % (Auto) 0.6 Absolute Neuts (auto) 4.1 Absolute Lymphs (auto) 1.47 Total Counted Not Reportable Sodium 144 Potassium 4.1 Chloride 112 H Carbon Dioxide 23.0 Anion Gap 9 BUN 17 Creatinine 1.03 H Estim Creat Clear Calc 29.73 Est GFR (MDRD) Af Amer 66 Est GFR (MDRD) Non-Af 54 L BUN/Creatinine Ratio 16.5 Glucose 74 Calcium 8.4 L POC Glucose 06/24/18 06/23/18 06/23/18 06:47 22:15 16:22 POC Glucose 70 124 H 87 06/23/18 11:24 POC Glucose 103 Discharge Diet: Low fat/ Low Cholesterol Discharge Activity: Return to Normal Activity Weight Bearing Status: Weight bearing as tolerated Call your doctor if you observe: Fever of 101 or Higher, Dizziness, Fainting spells Home Medications: Medications to take at Discharge Atenolol 100 mg PO DAILY 01/31/16 Insulin Glargine [Lantus SoloStar Pen] 26 units SC QHS 01/31/16 Levothyroxine [Synthroid] 88 mg PO DAILY 01/31/16 Lorazepam 1 mg PO DAILY PRN 01/31/16 Aspirin [Aspirin, Baby] 81 mg PO DAILY@0800 03/02/18 Losartan Potassium 100 mg PO DAILY 03/02/18 Sucralfate [Carafate] 1 gm PO 4X/DAY #40 tab 03/02/18 Esomeprazole Magnesium [Nexium 24Hr] 20 mg PO DAILY PRN PRN 06/22/18 Loperamide [Imodium] 2 mg PO PRN PRN 06/22/18 Primary Care Physician: Henrique Fernandez MD [Primary Care Provider] - Please follow up with your Primary Care Physician in: one week Please Follow Up With: Elliot Dotson MD When: 2-4 weeks Patient Instructions: Understanding Urinary Tract Infections (UTIs) Disposition: Home Minutes spent on discharge:: 38 Patient Condition:: Stable Medical Necessity - Tobacco Use Smoking Status: Former smoker Tobacco Use: Cigarettes Meaningful Use Info Meaningful Use Diagnoses (Choose all that apply): None applicable Code Visit Inpatient E&M: 83527 Disch Hosp
[2018-06-24 11:25] LABS: Bedside Glucose 107 mg/dL (70-110)
[2018-06-24] MEDS: FOSFOMYCIN TROMETHAMINE 3 GM PACKET PO (12:58)
== END 2018-06-24 11:22 | disposition home or self-care (01) ==
LOC: ED 20:19 → PCU 21:26
PROVIDERS: Admitting Provider Hospitalist; Emergency Provider Emergency Medicine; Family Provider Internal Medicine; PCP Internal Medicine; Visit Provider Student in an Organized Health Care Education/Training Program
DX: N30.00 Acute cystitis without hematuria (principal); G92 Toxic encephalopathy; T42.4X5A Adverse effect of benzodiazepines, initial encounter; R47.81 Slurred speech; I08.1 Rheumatic disorders of both mitral and tricuspid valves; E03.9 Hypothyroidism, unspecified; I10 Essential (primary) hypertension; Z85.810 Personal history of malignant neoplasm of tongue; F79 Unspecified intellectual disabilities; Z79.899 Other long term (current) drug therapy; Z79.82 Long term (current) use of aspirin; Z79.4 Long term (current) use of insulin; Z87.891 Personal history of nicotine dependence; E11.9 Type 2 diabetes mellitus without complications; Z16.12 Extended spectrum beta lactamase (ESBL) resistance; B96.20 Unspecified Escherichia coli [E. coli] as the cause of diseases classified elsewhere
CPT/HCPCS: 36415; 70450; 70496; 70498; 80048; 80061; 81001; 82962; 83036; 84484; 85025; 85610; 85730; 87086; 87088; 87186; 93005; 93306; 96361; 96365; 96366; 96372; 97161; 97165; 97802; 99218; 99283; J7030; Q9967; A4216; G0378

== ENCOUNTER → 2018-07-17 08:41 | Outpatient (CLI) | payer MEDICARE, SELFPAY ==
[2018-06-22 21:56] VITALS: BMI 23.9
--- NOTE | 2018-07-17 07:23 | PET_ITS ---
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 COMPARISON EXAMINATION: None available. INDEX LESION SIZE SUV INTERPRETATION Oral cavity left of the midline-tongue 20.5 mm x 45.2 mm (frame 240) 6.2 Fulfills quantitative criteria for viable neoplasm Mediastinal structures 11.8 mm largest (frame 189) 5.0 (max) Fulfills quantitative criteria for viable neoplasm Left lobe hepatic parenchyma heterogeneous 17.9 mm (frame 129) 4.1 ratio > 2.0 Fulfills quantitative criteria for viable neoplasm NON-INDEX LESION SIZE SUV INTERPRETATION Left upper abdomen, periaortic in location 1.7 Quantitative criteria for viable neoplasm are not fulfilled TECHNIQUE: Following the intravenous administration of 16.46 mCi of F-18 deoxyglucose via the right antecubital fossa, multiplanar image acquisitions of the neck, chest, abdomen and pelvis to level of mid thigh, obtained at one hour post radiopharmaceutical administration contemporaneously interpreted with the current CT of the neck, chest, abdomen and pelvis to level of mid thigh, dated 07/17/18 via coregistration reveal: SERUM GLUCOSE LEVEL: 129 mg/dl. HEIGHT: 60 inches. WEIGHT: 122 lbs. FINDINGS: 1. A heterogeneous increase in glucose metabolism is defined in the oral cavity to the left of the midline contiguous to the tongue extending to the pharyngeal mucosal space posteriorly. The calculated maximum standard uptake value is 6.2. The maximal axial diameter of the corresponding metabolic abnormality on review of CT of the neck dated 07/17/18 is 20.5 mm (transverse) x 45.2 mm (AP). 2. Facilitated radiopharmaceutical uptake is defined in the pre-subcarinal mediastinum rendering a calculated maximum standard uptake value of 5.0. The maximal axial diameter of the largest individual hypermetabolic soft tissue density on review of CT of the chest dated 07/17/18 is 11.8 mm (AP). 3. Several nodular foci of increased FDG concentration are defined in the upper abdomen in the region of the left lobe of the hepatic parenchyma (2.6) in the distribution of segment I generating a calculated maximum standard uptake value of 4.1 with a lesion to liver background ratio greater than 2.0. The maximal axial diameter of the corresponding metabolic abnormality on review of CT of the abdomen dated 07/17/18 is 17.9 mm (transverse). 4. Normal physiologic distribution of the radiopharmaceutical is apparent in the splenic parenchyma, both renal units, bladder and visualized intestinal tract. There is symmetric and preserved glucose metabolism noted in the visualized portion of the frontal, occipital, temporal and parietal lobes of the cerebral cortex, as well as cerebral hemispheres and basal ganglia. Diffuse intestinal tract activity is noted throughout all four quadrants of the abdominal-pelvic retroperitoneum, mesentery consistent with normal physiologic distribution of the radiopharmaceutical. Subtle increased glucose concentration is observed in the left upper abdomen, periaortic in location generating a calculated maximum standard uptake value of 1.7. Pertinent CT findings are as follows. CHEST: There are no parenchymal densities-nodules defined in the right-left hemithorax demonstrating discernible, quantitatively significant increased glucose metabolism. Atherosclerotic calcification is defined in the thoracic aorta without evidence of dilatation, aneurysm formation. Coronary arterial calcification is observed. Bilateral subcentimeter axillary soft tissue densities are non-glucose avid. ABDOMEN AND PELVIS: Atherosclerotic calcification is defined in the abdominal aorta without evidence of dilatation, aneurysm formation. Pelvic arterial calcification is observed. Right-left inguinal soft tissue densities are ametabolic. Dystrophic calcification is manifest in the bilateral lower hemipelvis. SKELETAL: Degenerative changes defined in the cervical, thoracic and lumbar spine demonstrate no evidence for glucose hypermetabolism. PET/PET/CT Tumor Base -Thigh Init IMPRESSION: 1. ABNORMAL EXAMINATION INDICATIVE OF MALIGNANT-VIABLE NEOPLASM. 2. Increased glucose concentration defined in the oral cavity to the left of the midline contiguous to the tongue fulfills quantitative criteria for viable neoplasm. 3. Mediastinal hypermetabolic foci fulfill quantitative criteria for malignant transformation. (Renee et al, Journal of Clinical Oncology 16:2142, 1998). 4. Facilitated FDG uptake defined in the left lobe of the hepatic parenchyma fulfills quantitative criteria for viable neoplasm. (Delbeke et al, Archives of Surgery, 133:510 1998). 5. Subtle increased tracer uptake noted in the left upper abdomen, periaortic in location does not fulfill quantitative criteria for viable neoplasm. Electronic Signature Bryan Eddy D.O. Electronically Signed: Bryan Eddy DO at 23:29 EST Tel , Service support ,
== END ==
PROVIDERS: Family Provider Internal Medicine; PCP Internal Medicine; Visit Provider Internal Medicine Hematology & Oncology
DX: C02.8 Malignant neoplasm of overlapping sites of tongue (principal)
CPT/HCPCS: 78815; A9552